=== PATIENT | female | born 1950 | race Caucasian/White ===

== ENCOUNTER → 2022-07-24 | Outpatient (CLI) | payer OTHER ==
[2022-07-25 01:47] LABS: Calcium, Urine 15.7 mg/dL (< 17.5); Calcium, Urine Calculation 298.3 mg/24hrs (42.0-353.0)
== END | disposition home or self-care (01) ==
LOC: LAB 11:53 → LAB SHORT 11:53
PROVIDERS: Nurse Practitioner Family
DX: E21.3 Hyperparathyroidism, unspecified (principal)
CPT/HCPCS: 81050; 82340